=== PATIENT | female | born 1960 | race Caucasian/White ===

== ENCOUNTER 2016-11-13 19:17 | Emergency (ER) | payer MEDICAID ==
[~2016-11-13] VITALS: Ht 172.7 cm; Wt 68.0 kg
--- NOTE | 2016-11-13 20:11 | NUR ---
Patient discharged to home in stable conditon. Written and verbal after care instructions given. Patient verbalizes understanding of instructions.
== END 2016-11-13 20:13 | disposition home or self-care (01) ==
LOC: ER 19:17
DX: J02.8 Acute pharyngitis due to other specified organisms (principal); R05 Cough; H92.03 Otalgia, bilateral; I10 Essential (primary) hypertension; H40.9 Unspecified glaucoma
CPT/HCPCS: A4663

== ENCOUNTER 2017-05-07 14:04 | Emergency (ER) | payer MEDICAID ==
[~2017-05-07] VITALS: Ht 172.7 cm; Wt 65.8 kg
--- NOTE | 2017-05-07 14:45 | NUR ---
PATIENT WAS SEEN AND EVALED BY DR BARRIENTOS IN ROOM 03A.
[2017-05-07 14:50] LABS: *BILIRUBIN,URIN NEGATIVE (NEGATIVE); *BLOOD, URINE Trace-intact (NEGATIVE); *CLARITY,URINE CLEAR (CLEAR); *COLOR,URINE AMBER (YELLOW); *KETONES,URINE NEGATIVE (NEGATIVE); *PROTEIN,URINE TRACE (NEGATIVE); LEUKOCYTE ESTERASE ,URINE TRACE (NEGATIVE); NITRITE, URINE NEGATIVE (NEGATIVE); PH,URINE 7.5 (5.0-8.0); UGLUCOSE NEGATIVE (NEGATIVE)
[2017-05-07 14:55] LABS: BACTERIA,URINE FEW /HPF (NONE SEEN); SQUAMOUS EPITHELIAL CELL,UR FEW /HPF (NONE SEEN)
--- NOTE | 2017-05-07 15:10 | NUR ---
DR BARRIENTOS MADE PATIENT MADE AWARE OF TEST RESULTS WILL BE DC HOME
--- NOTE | 2017-05-07 15:12 | NUR ---
Patient discharged to home in stable conditon. Written and verbal after care instructions given. Patient verbalizes understanding of instructions.
[2017-05-07 15:14] VITALS: BP 122/78
== END 2017-05-07 15:15 | disposition home or self-care (01) ==
LOC: ER 14:04
DX: N39.0 Urinary tract infection, site not specified (principal); I10 Essential (primary) hypertension
CPT/HCPCS: A4663